=== PATIENT | male | born 1990 | race Caucasian/White ===

== ENCOUNTER 2019-08-03 15:29 | Emergency (ER) | payer SELFPAY ==
--- NOTE | 2019-08-03 17:04 | ER Document Report ---
ED Medical Screen (RME) - General Chief Complaint: Chest Pain Stated Complaint: CHEST PAIN Time Seen by Provider: 08/03/19 16:58 Mode of Arrival: Ambulatory Information source: Patient Notes: Otherwise healthy 29-year-old male presenting to the emergency department chief complaint of chest pain. Patient reports left sided chest pain with radiation to his left shoulder and left arm numbness began around 2:00 this morning. He denies any shortness of breath or nausea. Reports the pain is worse with a deep breath. Denies any past medical history, does not take any medications and is a non-smoker. Exam: Lung sounds clear and equal bilaterally. Heart sounds S1-S2 present, normal rate, normal rhythm. No pain with palpation on the chest wall. I have greeted and performed a rapid initial assessment of this patient. A comprehensive ED assessment and evaluation of the patient, analysis of test results and completion of the medical decision making process will be conducted by additional ED providers. I have specifically instructed the patient or family members with the patient to immediately return to any nursing staff should anything change in the patient's condition or with their chief complaint. This medical record was dictated with voice recognizing software. There may be grammatical, syntax errors that are unintended. TRAVEL OUTSIDE OF THE [place] IN LAST 30 DAYS: No - Related Data Allergies/Adverse Reactions: No Known Allergies Allergy (Verified 08/03/19 16:57) Past Medical History - Social History Chew tobacco use (# tins/day): No Frequency of alcohol use: None Drug Abuse: None Physical Exam - Vital signs Vitals: Temp Pulse Resp BP Pulse Ox 98.5 F 98 20 127/85 H 97 08/03/19 15:51 08/03/19 15:51 08/03/19 15:51 08/03/19 15:51 08/03/19 15:51 Course - Vital Signs Vital signs: Temp Pulse Resp BP Pulse Ox 98.5 F 98 20 127/85 H 97 08/03/19 16:57 08/03/19 15:51 08/03/19 16:57 08/03/19 15:51 08/03/19 16:57
[2019-08-03 17:21] LABS: ABSOLUTE LYMPHOCYTES (AUTO) 1.3 10^3/uL (0.5-4.7); ABSOLUTE MONOCYTES (AUTO) 1.2 10^3/uL (0.1-1.4); ABSOLUTE NEUT (AUTO) 4.1 10^3/uL (1.7-8.2); BASOPHILS % (AUTO) 0.3 % (0-2); EOSINOPHILS % (AUTO) 0.6 % (0-6); HEMATOCRIT 42.1 % (37.9-51.0); HEMOGLOBIN 14.6 g/dL (13.5-17.0); LYMPHOCYTES % (AUTO) 19.5 % (13-45); MEAN CORPUSCULAR HEMOGLOBIN 27.9 pg (27.0-33.4); MEAN CORPUSCULAR HGB CONC 34.6 g/dL (32.0-36.0); MEAN CORPUSCULAR VOLUME 81 fl (80-97); MONOCYTES % (AUTO) 18.1 % (3-13); PLATELET COUNT 297 10^3/uL (150-450); RED BLOOD COUNT 5.23 10^6/uL (4.35-5.55); RED CELL DISTRIBUTION WIDTH 14.2 % (11.5-14.0); SEGMENTED NEUTROPHILS % (AUTO) 61.5 % (42-78); TOTAL CELLS COUNTED % (AUTO) 100 %; WHITE BLOOD COUNT 6.6 10^3/uL (4.0-10.5)
--- NOTE | 2019-08-03 17:39 | RADIOLOGY REPORT (SQ) ---
EXAM DESCRIPTION: CHEST 2 VIEWS COMPLETED DATE/TIME: 08/03/2019 5:12 pm REASON FOR STUDY: chest pain, L arm tingling COMPARISON: 02/05/2016 TECHNIQUE: Frontal and lateral radiographic views of the chest acquired. NUMBER OF VIEWS: Two view. LIMITATIONS: None. FINDINGS: LUNGS AND PLEURA: No pneumothorax. No consolidation or pleural effusion. MEDIASTINUM AND HILAR STRUCTURES: Stable. HEART AND VASCULAR STRUCTURES: Stable. BONES: No acute findings. HARDWARE: None in the chest. OTHER: No other significant finding. IMPRESSION: NO ACUTE FINDINGS. TECHNICAL DOCUMENTATION: JOB ID: [id number] [id number] 2010 [employer]- All Rights Reserved Reading location - IP/workstation name: [email or web address]
[2019-08-03 17:47] LABS: ALBUMIN 4.7 g/dL (3.5-5.0); ALKALINE PHOSPHATASE 100 U/L (38-126); ANION GAP 16 (5-19); ASPARTATE AMINO TRANSFERASE 25 U/L (17-59); BILIRUBIN,DIRECT 0.2 mg/dL (0.0-0.4); BILIRUBIN,TOTAL 0.6 mg/dL (0.2-1.3); BLOOD UREA NITROGEN 11 mg/dL (7-20); CALCIUM 10.1 mg/dL (8.4-10.2); CARBON DIOXIDE 25 mmol/L (22-30); CHLORIDE 100 mmol/L (98-107); GLUCOSE 91 mg/dL (75-110); TOTAL PROTEIN 8.3 g/dL (6.3-8.2)
[2019-08-03 18:53] LABS: APPEARANCE,URINE SLIGHTLY-CLOUDY; BILIRUBIN,URINE NEGATIVE (NEGATIVE); COLOR,URINE YELLOW; GLUCOSE, URINE NEGATIVE (NEGATIVE); KETONES,URINE TRACE mg/dL (NEGATIVE); LEUKOCYTE ESTERASE,URINE NEGATIVE (NEGATIVE); NITRITE,URINE NEGATIVE (NEGATIVE); PROTEIN,URINE 30 mg/dL (NEGATIVE); URINE SPECIFIC GRAVITY 1.028; UROBILINOGEN,URINE NEGATIVE mg/dL (<2.0)
--- NOTE | 2019-08-03 19:36 | ER Document Report ---
ED General - General Chief Complaint: Chest Pain Stated Complaint: CHEST PAIN Time Seen by Provider: 08/03/19 16:58 Mode of Arrival: Ambulatory TRAVEL OUTSIDE OF THE [place] IN LAST 30 DAYS: No - Related Data Allergies/Adverse Reactions: No Known Allergies Allergy (Verified 08/03/19 16:57) Past Medical History - General Information source: Patient - Social History Smoking Status: Unknown if Ever Smoked Chew tobacco use (# tins/day): No Frequency of alcohol use: None Drug Abuse: None Family History: None Patient has suicidal ideation: No Patient has homicidal ideation: No Physical Exam - Vital signs Vitals: Temp Pulse Resp BP Pulse Ox 98.5 F 98 20 127/85 H 97 08/03/19 15:51 08/03/19 15:51 08/03/19 15:51 08/03/19 15:51 08/03/19 15:51 - Notes Notes: Patient presents emergency department with chest pain that started about 5 hours prior to arrival. The pain is located over the left anterior chest and radiates to his left shoulder but not down the arm. He says he feels like somebody is squeezing it. Pain seems to get worse when he moves his arm around not worse when he takes a deep breath or walks. He denies any nausea vomiting fevers cough shortness of breath diaphoresis or palpitations associated with this and no previous history of heart disease. Does report he has a does a lot of lifting at work remember any particular type of trauma. He has any recent travel or immobilization. Denies any illegal drugs Past medical history is negative for diabetes hypertension or heart disease. Social history does not smoke or drink at all. Family history is negative for early heart disease or venous thromboembolism Review of systems pertinent positives and negatives in HPI otherwise all the systems were reviewed and acutely negative PHYSICIAN EXAM -vital signs are noted triage note and note from triage reviewed GENERAL: Well-appearing, well-nourished and in _no acute distress HEAD: Atraumatic, normocephalic. EYES: Pupils equal round and reactive to light, extraocular movements intact, sclera anicteric, conjunctiva are normal. ENT: nares patent, oropharynx clear without exudates. Moist mucous membranes. NECK: supple without lymphadenopathy LUNGS: Breath sounds clear to auscultation bilaterally and equal. No wheezes rales or rhonchi. Have tenderness over the chest along the anterior axillary line produces his pain. No crepitus or lesions HEART: Regular rate and rhythm without murmurs ABDOMEN: Soft, nontender, normoactive bowel sounds. EXTREMITIES: No deformity, no edema. No palpable cords upper extremities clavicle and AC joint are nontender with full range of motion of the shoulder. However forced AB and adduction increase the pain NEUROLOGICAL: No focal neurological deficits. Moves all extremities spontaneousl y and on command. PSYCH: Normal mood, normal affect. SKIN: Warm, Dry, normal turgor, no rashes or lesions noted. BACK-nontender in the midline Differential diagnosis includes pleurisy pneumonia muscle strain Course - Re-evaluation Re-evalutation: 08/03/19 19:42 ED patient is remained stable is been on quality assurance monitor final evidence of arrhythmias he says the pain is improved significantly. Medical decision making patient presents with what appears to be chest wall pain. There is no risk factors for heart disease. No life-threatening cause of his chest pain he looks well can be discharged home Dictation was done using voice recognition software. There may be some grammatical errors which are unintentional I discussed results of laboratory findings and diagnostic test with patient/family. The treatment plan was explained and I reviewed the discharge instructions with them. Questions were answered. The patient/family verbalizes understanding - Vital Signs Vital signs: Temp Pulse Resp BP Pulse Ox 98.5 F 98 19 119/80 95 08/03/19 16:57 08/03/19 15:51 08/03/19 19:01 08/03/19 19:00 08/03/19 19:01 - Laboratory Result Diagrams: 08/03/19 17:05 08/03/19 17:05 Laboratory results interpreted by me: 08/03/19 08/03/19 08/03/19 17:05 17:05 18:20 RDW 14.2 H [place] % (Auto) 18.1 H Total Protein 8.3 H Urine Protein 30 H Urine Ketones TRACE H Urine Blood SMALL H - EKG Interpretation by Me Additional EKG results interpreted by me: 08/03/19 19:44 EKG shows a normal sinus rhythm rate 95 normal axis and QRS no nonspecific ST wave changes and unchanged from previous EKG Discharge - Discharge Clinical Impression: Chest wall pain Condition: Good Disposition: HOME, SELF-CARE Instructions: Chest Wall Pain ([facility]) Additional Instructions: Please review the discharge instructions, they will tell you about your disease/injury and what you need to return to the ED for Return to the ED if you feel worse or can follow-up with your family doctor Rest Apply heat to your chest 3 times a day the next 3 to 5 days Follow-up in the clinic in 3 to 5 days if not better Prescriptions: Ketorolac Tromethamine [Toradol 10 mg Tablet] 10 mg PO ASDIR PRN #16 tablet PRN Reason: Forms: Return to Work
[2019-08-03 20:17] VITALS: BP 127/80
--- NOTE | 2019-08-03 21:38 | EKG REPORT ---
SEVERITY:- NORMAL ECG - SINUS RHYTHM : Confirmed by: Wayne Dior MD 03-Aug-2019 21:37:10
== END 2019-08-03 20:20 | disposition home or self-care (01) ==
LOC: ER 15:29
DX: R07.89 Other chest pain (principal)
CPT/HCPCS: 36415; 71046; 80053; 81001; 84484; 85025; 93005; 93010; 99285